=== PATIENT | female | born 1945 | race Caucasian/White ===

== ENCOUNTER 2016-10-13 13:46 | Emergency (ER) | payer MEDICARE ==
[2016-10-13 14:16] VITALS: BP 173/90; PULSE 87; RESP 16; TEMP 97.7
[2016-10-13] MEDS ORDERED: LORazepam 2 MG/ML SYRINGE IV STA (15:03)
--- NOTE | 2016-10-13 15:42 | XR ---
EXAMINATION TYPE: XR chest 2V DATE OF EXAM: 10/13/2016 3:36 PM COMPARISON: NONE HISTORY: Chest pain and heaviness. TECHNIQUE: Frontal and lateral views of the chest are obtained. FINDINGS: There is no focal air space opacity, pleural effusion, or pneumothorax seen. The cardiac silhouette size is within normal limits. The osseous structures are intact. IMPRESSION: No acute process.
[2016-10-13 15:48] LABS: Basophils % (A) 1 %; CH 31.3; CHCM 34.8; Eosinophils # (A) 0.5 k/uL (0-0.7); Eosinophils % (A) 11 %; HCT 36.1 % (34.0-46.0); HDW 2.83; HGB 12.3 gm/dL (11.4-16.0); Luc # (Auto) 0.14; Luc % (Auto) 3; Lymphocytes # (A) 1.2 k/uL (1.0-4.8); Lymphocytes % (A) 27 %; MCH 30.8 pg (25.0-35.0); MCHC 33.9 g/dL (31.0-37.0); MCV 90.7 fL (80.0-100.0); Mean Platelet Volume 7.2; Monocytes # (A) 0.4 k/uL (0-1.0); Monocytes % (A) 8 %; Neutrophils # (A) 2.3 k/uL (1.3-7.7); Neutrophils % (A) 50 %; RBC 3.98 m/uL (3.80-5.40); RDW 13.8 % (11.5-15.5); WBC 4.6 k/uL (3.8-10.6); WBC (Perox) 4.81
[2016-10-13 15:49] LABS: INR 1.1 (<1.1); Partial Thromboplastin Time 23.7 sec (22.0-30.0); Prothrombin Time 10.8 sec (9.0-12.0)
[2016-10-13 15:53] LABS: Anion Gap 11 mmol/L; Carbon Dioxide 24 mmol/L (22-30); Chloride 106 mmol/L (98-107); Glucose 79 mg/dL (74-99); Potassium 3.6 mmol/L (3.5-5.1); Sodium 141 mmol/L (137-145)
--- NOTE | 2016-10-13 15:53 | ED ---
General Adult HPI - General Chief complaint: Chest Pain Stated complaint: Chest Pain Time Seen by Provider: 10/13/16 14:28 Source: patient, RN notes reviewed, old records reviewed Mode of arrival: ambulatory Limitations: no limitations - History of Present Illness Initial comments: This is a 71-year-old female for evaluation. This patient presents here today for evaluation of multiple complaints of substernal chest pain. Patient has no specific chest pain at this time is is does not feel right, felt some pressure on the anterior part of chest may be some increased to job. No shortness of breath. This happened while she was getting a drink earlier today of pop with her friend. Patient's admits to a lot of increased stress with life situations lately, extensive travel history and conditions with family stress. Patient admits to increased stress but no homicidal or suicidal thoughts, no drugs or alcohol abuse. She is not currently with any chest - Related Data Home Medications Medication Instructions Recorded Confirmed Atorvastatin Calcium [Lipitor] 40 mg PO DAILY 04/28/16 10/13/16 Calcium Carbonate [Calcium] 600 mg PO DAILY 04/28/16 10/13/16 Cholecalciferol [Vitamin D3] 1,000 unit PO DAILY 04/28/16 10/13/16 Esomeprazole Magnesium [NexIUM] 40 mg PO DAILY PRN 04/28/16 10/13/16 L.acidoph,Paracasei, B.lactis 1 cap PO DAILY 04/28/16 10/13/16 [Probiotic] Levothyroxine Sodium [Synthroid] 50 mcg PO DAILY 04/28/16 10/13/16 Levocetirizine Dihydrochloride 5 mg PO DAILY 10/13/16 10/13/16 [Xyzal] Levofloxacin [Levaquin] 500 mg PO DAILY 10/13/16 10/13/16 Turmeric Root Extract [Turmeric] 500 mg PO DAILY 10/13/16 10/13/16 Vitamin E (Dl,Tocopheryl Acet) 400 unit PO DAILY 10/13/16 10/13/16 [Vitamin E] valACYclovir [Valtrex] 500 mg PO DAILY 10/13/16 10/13/16 Allergies Allergy/AdvReac Type Severity Reaction Status Date / Time epinephrine Allergy Unknown Verified 10/13/16 15:15 Penicillins Allergy Rash/Hives Verified 10/13/16 15:15 STEROIDS Allergy Unknown Uncoded 10/13/16 14:16 Review of Systems ROS Statement: Those systems with pertinent positive or pertinent negative responses have been documented in the HPI. ROS Other: All systems not noted in ROS Statement are negative. Past Medical History Past Medical History: Hyperlipidemia, Thyroid Disorder History of Any Multi-Drug Resistant Organisms: None Reported Past Surgical History: Adenoidectomy, Orthopedic Surgery, Tonsillectomy Past Psychological History: Anxiety Smoking Status: Never smoker Past Alcohol Use History: None Reported Past Drug Use History: None Reported General Exam Limitations: no limitations General appearance: alert, in no apparent distress, anxious Head exam: Present: atraumatic, normocephalic, normal inspection Eye exam: Present: normal appearance, PERRL, EOMI. Absent: scleral icterus, conjunctival injection, periorbital swelling ENT exam: Present: normal exam, mucous membranes moist Neck exam: Present: normal inspection. Absent: tenderness, meningismus, lymphadenopathy Respiratory exam: Present: normal lung sounds bilaterally. Absent: respiratory distress, wheezes, rales, rhonchi, stridor Cardiovascular Exam: Present: regular rate, normal rhythm, normal heart sounds. Absent: systolic murmur, diastolic murmur, rubs, gallop, clicks GI/Abdominal exam: Present: soft, normal bowel sounds. Absent: distended, tenderness, guarding, rebound, rigid Extremities exam: Present: normal inspection, full ROM, normal capillary refill. Absent: tenderness, pedal edema, joint swelling, calf tenderness Back exam: Present: normal inspection Neurological exam: Present: alert, oriented X3, CN II-XII intact Psychiatric exam: Present: normal affect, normal mood Skin exam: Present: warm, dry, intact, normal color. Absent: rash Course Vital Signs 10/13/16 14:12 Temperature 97.7 F Pulse Rate 87 Respiratory 16 Rate Blood Pressure 173/90 O2 Sat by Pulse 99 Oximetry - Reevaluation(s) Reevaluation #1: 10/13/16 15:52 Spoke with patient greater than 15 minutes, counseling provided, she remains not homicidal or suicidal, no chest pain 10/13/16 16:53 Patient is without any chest pain or shortness of breath, denies homicidal or suicidal EKG Findings - EKG Comments: EKG Findings:: EKG shows normal sinus rhythm rate 93, VT 190, QRS 94, QTC 484 Medical Decision Making - Medical Decision Making 71 female here for evaluation of stress increased life stressors, not homicidal or suicidal, denies any chest pain. No shortness of breath. EKG H Schaeffer negative. Patient can be discharged home - Lab Data Result diagrams: 10/13/16 15:23 10/13/16 15:23 Lab Results 10/13/16 10/13/16 10/13/16 Range/Units 15:23 15:23 15:23 WBC 4.6 (3.8-10.6) k/uL RBC 3.98 (3.80-5.40) m/uL Hgb 12.3 (11.4-16.0) gm/dL Hct 36.1 (34.0-46.0) % MCV 90.7 (80.0-100.0) fL MCH 30.8 (25.0-35.0) pg MCHC 33.9 (31.0-37.0) g/dL RDW 13.8 (11.5-15.5) % Plt Count 282 (150-450) k/uL Neutrophils % 50 % Lymphocytes % 27 % Monocytes % 8 % Eosinophils % 11 % Basophils % 1 % Neutrophils # 2.3 (1.3-7.7) k/uL Lymphocytes # 1.2 (1.0-4.8) k/uL Monocytes # 0.4 (0-1.0) k/uL Eosinophils # 0.5 (0-0.7) k/uL Basophils # 0.0 (0-0.2) k/uL PT (9.0-12.0) sec INR (<1.1) APTT (22.0-30.0) sec Sodium 141 (137-145) mmol/L Potassium 3.6 (3.5-5.1) mmol/L Chloride 106 (98-107) mmol/L Carbon Dioxide 24 (22-30) mmol/L Anion Gap 11 mmol/L BUN 11 (7-17) mg/dL Creatinine 0.80 (0.52-1.04) mg/dL Est GFR (MDRD) Af Amer >60 (>60 ml/min/1.73 sqM) Est GFR (MDRD) Non-Af >60 (>60 ml/min/1.73 sqM) Glucose 79 (74-99) mg/dL Calcium 10.2 (8.4-10.2) mg/dL Magnesium 2.0 (1.6-2.3) mg/dL Total Bilirubin 0.5 (0.2-1.3) mg/dL AST 22 (14-36) U/L ALT 35 (9-52) U/L Alkaline Phosphatase 80 (38-126) U/L Total Creatine Kinase 78 (30-135) U/L CK-MB (CK-2) 0.6 (0.0-2.4) ng/mL CK-MB (CK-2) Rel Index 0.8 Troponin I <0.012 (0.000-0.034) ng/mL Total Protein 7.5 (6.3-8.2) g/dL Albumin 4.3 (3.5-5.0) g/dL Lipase 148 (23-300) U/L 10/13/16 Range/Units 15:23 WBC (3.8-10.6) k/uL RBC (3.80-5.40) m/uL Hgb (11.4-16.0) gm/dL Hct (34.0-46.0) % MCV (80.0-100.0) fL MCH (25.0-35.0) pg MCHC (31.0-37.0) g/dL RDW (11.5-15.5) % Plt Count (150-450) k/uL Neutrophils % % Lymphocytes % % Monocytes % % Eosinophils % % Basophils % % Neutrophils # (1.3-7.7) k/uL Lymphocytes # (1.0-4.8) k/uL Monocytes # (0-1.0) k/uL Eosinophils # (0-0.7) k/uL Basophils # (0-0.2) k/uL PT 10.8 (9.0-12.0) sec INR 1.1 (<1.1) APTT 23.7 (22.0-30.0) sec Sodium (137-145) mmol/L Potassium (3.5-5.1) mmol/L Chloride (98-107) mmol/L Carbon Dioxide (22-30) mmol/L Anion Gap mmol/L BUN (7-17) mg/dL Creatinine (0.52-1.04) mg/dL Est GFR (MDRD) Af Amer (>60 ml/min/1.73 sqM) Est GFR (MDRD) Non-Af (>60 ml/min/1.73 sqM) Glucose (74-99) mg/dL Calcium (8.4-10.2) mg/dL Magnesium (1.6-2.3) mg/dL Total Bilirubin (0.2-1.3) mg/dL AST (14-36) U/L ALT (9-52) U/L Alkaline Phosphatase (38-126) U/L Total Creatine Kinase (30-135) U/L CK-MB (CK-2) (0.0-2.4) ng/mL CK-MB (CK-2) Rel Index Troponin I (0.000-0.034) ng/mL Total Protein (6.3-8.2) g/dL Albumin (3.5-5.0) g/dL Lipase (23-300) U/L - Radiology Data Radiology results: report reviewed (Chest x-ray shows no acute disease), image reviewed Disposition Clinical Impression: Grief reaction, Chest pain Disposition: HOME SELF-CARE Condition: Good Instructions: Grief and Loss (ED) Referrals: Nonstaff,Physician [Primary Care Provider] - 1-2 days
[2016-10-13 15:54] LABS: ALT 35 U/L (9-52); AST 22 U/L (14-36); Alkaline Phosphatase 80 U/L (38-126); Calcium 10.2 mg/dL (8.4-10.2); Non-African American GFR(MDRD) >60 (>60 ml/min/1.73 sqM); Total Bilirubin 0.5 mg/dL (0.2-1.3); Total Protein 7.5 g/dL (6.3-8.2)
[2016-10-13 15:55] LABS: Blood Urea Nitrogen 11 mg/dL (7-17)
[2016-10-13 16:01] LABS: Creatine Kinase 78 U/L (30-135)
[2016-10-13 16:15] LABS: Creatine Kinase MB 0.6 ng/mL (0.0-2.4); Troponin I <0.012 ng/mL (0.000-0.034)
== END 2016-10-13 17:20 | disposition home or self-care (01) ==
LOC: EC 13:46
DX: R07.89 Other chest pain (principal); F43.20 Adjustment disorder, unspecified; F43.9 Reaction to severe stress, unspecified; E78.5 Hyperlipidemia, unspecified; E07.9 Disorder of thyroid, unspecified; F41.9 Anxiety disorder, unspecified; Z79.899 Other long term (current) drug therapy; Z88.0 Allergy status to penicillin; Z88.8 Allergy status to other drugs, medicaments and biological substances
CPT/HCPCS: 36415; 71020; 80053; 82550; 82553; 83690; 83735; 84484; 85025; 85610; 85730; 93005; 96374; 99285

== ENCOUNTER 2017-04-25 12:02 | Emergency (ER) | payer MEDICARE ==
[2017-04-25 12:10] VITALS: BP 158/79; PULSE 71; RESP 16; TEMP 97
--- NOTE | 2017-04-25 12:54 | XR ---
EXAMINATION TYPE: XR wrist complete LT DATE OF EXAM: 04/25/2017 COMPARISON: NONE HISTORY: 71-year-old female radial sided pain after fall TECHNIQUE: 4 views FINDINGS: Radiocarpal and distal radial ulnar joint as well as the midcarpal compartment appear intact. There a ppears to be some soft tissue swelling circumferentially about the wrist. No acute fracture, subluxat ion, or dislocation seen. IMPRESSION: Circumferential soft tissue swelling at the wrist. No acute osseous abnormality seen.
--- NOTE | 2017-04-25 12:55 | ED ---
General Adult HPI - General Chief complaint: Extremity Injury, Upper Stated complaint: Left wrist pain/fell Time Seen by Provider: 04/25/17 12:11 Source: patient Mode of arrival: ambulatory Limitations: no limitations - History of Present Illness Initial comments: 71-year-old female patient presents to emergency department today for evaluation of left wrist injury. Patient states that she was coming down wooden stairs this morning, states they were slippery, states she slipped and fell down about 4 steps. Patient states that she did not hit her head or lose consciousness. She denies any head, neck, or back pain. She denies any other injuries other than the wrist. Patient states that she is having some mild jaw pain from the jarring. However denies any difficulty opening her mouth, chewing , or speaking. She denies any loose or broken teeth. She denies any dizziness , weakness, chest pain, shortness of breath, abdominal pain, nausea, vomiting, difficulties with urination or bowel movements. GCS is 15. - Related Data Home Medications Medication Instructions Recorded Confirmed Atorvastatin Calcium [Lipitor] 40 mg PO DAILY 04/28/16 04/25/17 Calcium Carbonate [Calcium] 600 mg PO DAILY 04/28/16 04/25/17 Cholecalciferol [Vitamin D3] 1,000 unit PO DAILY 04/28/16 04/25/17 Esomeprazole Magnesium [NexIUM] 40 mg PO DAILY PRN 04/28/16 04/25/17 L.acidoph,Paracasei, B.lactis 1 cap PO DAILY 04/28/16 04/25/17 [Probiotic] Levothyroxine Sodium [Synthroid] 50 mcg PO DAILY 04/28/16 04/25/17 Levocetirizine Dihydrochloride 5 mg PO DAILY 10/13/16 04/25/17 [Xyzal] Levofloxacin [Levaquin] 500 mg PO DAILY 10/13/16 04/25/17 Turmeric Root Extract [Turmeric] 500 mg PO DAILY 10/13/16 04/25/17 Vitamin E (Dl,Tocopheryl Acet) 400 unit PO DAILY 10/13/16 04/25/17 [Vitamin E] valACYclovir [Valtrex] 500 mg PO DAILY 10/13/16 04/25/17 Allergies Allergy/AdvReac Type Severity Reaction Status Date / Time epinephrine Allergy Unknown Verified 04/25/17 12:10 Penicillins Allergy Rash/Hives Verified 04/25/17 12:10 STEROIDS Allergy Unknown Uncoded 04/25/17 12:10 Review of Systems ROS Statement: Those systems with pertinent positive or pertinent negative responses have been documented in the HPI. ROS Other: All systems not noted in ROS Statement are negative. Past Medical History Past Medical History: Hyperlipidemia, Thyroid Disorder History of Any Multi-Drug Resistant Organisms: None Reported Past Surgical History: Adenoidectomy, Orthopedic Surgery, Tonsillectomy Past Psychological History: Anxiety Smoking Status: Never smoker Past Alcohol Use History: None Reported Past Drug Use History: None Reported General Exam Limitations: no limitations General appearance: alert, in no apparent distress Head exam: Present: atraumatic, normocephalic, normal inspection Eye exam: Present: normal appearance, PERRL, EOMI. Absent: scleral icterus, conjunctival injection, periorbital swelling, periorbital tenderness ENT exam: Present: normal exam, normal oropharynx, mucous membranes moist, TM's normal bilaterally, other (Patient able to open mouth without difficulty, able to open jaw with resistance, able to bite down without pain. Dentition inspected, no loose or broken teeth noted.) Neck exam: Present: normal inspection, full ROM, other (No tenderness, step-off , or deformity noted to her midline palpation. Full range of motion without pain or limitation.). Absent: tenderness, meningismus, lymphadenopathy Respiratory exam: Present: normal lung sounds bilaterally. Absent: respiratory distress, wheezes, rales, rhonchi, stridor Cardiovascular Exam: Present: regular rate, normal rhythm, normal heart sounds. Absent: systolic murmur, diastolic murmur, rubs, gallop, clicks GI/Abdominal exam: Present: soft, normal bowel sounds. Absent: distended, tenderness, guarding, rebound, rigid Extremities exam: Present: full ROM (Patient is able to flex wrist but with pain , able to extend wrist but with pain.), tenderness (Tenderness over the ulnar aspect of the left wrist.), normal capillary refill, other. Absent: normal inspection (Mild swelling to the ulnar aspect of the left wrist), pedal edema, joint swelling, calf tenderness Back exam: Present: normal inspection, full ROM (Full range of motion without pain or limitation.), other (No tenderness, step-off, or deformity noted to her midline palpation of the vertebra.). Absent: tenderness, CVA tenderness (R), CVA tenderness (L), vertebral tenderness, rash noted Neurological exam: Present: alert, oriented X3, CN II-XII intact, other (GCS 15. ) Psychiatric exam: Present: normal affect, normal mood Skin exam: Present: warm, dry, intact, normal color. Absent: rash Course Vital Signs 04/25/17 12:05 Temperature 97.0 F L Pulse Rate 71 Respiratory 16 Rate Blood Pressure 158/79 O2 Sat by Pulse 100 Oximetry Medical Decision Making - Medical Decision Making 71-year-old female patient presented to the emergency department today for evaluation of left wrist pain after fall. Physical exam did reveal some soft tissue swelling surrounding the left wrist, as well as tenderness over the ulnar aspect of the left wrist. Patient did have an x-ray 4 views of the left wrist which showed no acute fracture or dislocation and reaffirmed that there was soft tissue swelling. Patient will be discharged home with an Chu wrap in place for comfort and support. Patient instructed take Tylenol or Motrin for pain control. Patient was also advised to obtain a repeat x-ray in 7-10 days if her symptoms persist. Patient instructed to follow-up with her primary care physician for recheck in 1-2 days and to return immediately for any new, worsening, or concerning symptoms. Patient verbalized understanding and agreed with this plan. - Radiology Data Radiology results: report reviewed, image reviewed 4 views of the left wrist were obtained and showed radiocarpal and distal radial ulnar joint as well as the midcarpal compartments appear intact. There appears to be some soft tissue swelling circumferentially about the wrist. No acute fracture, subluxation, or dislocation seen. Impression by Dr. Patel shows circumferential soft tissue swelling at the wrist. No acute osseous abnormality seen. Disposition Clinical Impression: Left wrist sprain Disposition: HOME SELF-CARE Instructions: Wrist Sprain (ED) Additional Instructions: Rest wrist, keep Chu wrap on for comfort. Apply ice 20 minutes at a time at least 4 times daily. Keep wrist elevated. Follow up for repeat x-ray in 7-10 days if symptoms persist. Follow-up with primary care physician for recheck in 1-2 days. Return immediately for any new, worsening, or concerning symptoms. Referrals: Nonstaff,Physician [REFERRING] - 1-2 days Time of Disposition: 12:57
== END 2017-04-25 13:13 | disposition home or self-care (01) ==
LOC: EC 12:02
DX: S63.502A Unspecified sprain of left wrist, initial encounter (principal); E78.5 Hyperlipidemia, unspecified; E07.9 Disorder of thyroid, unspecified; Z88.0 Allergy status to penicillin; Z88.8 Allergy status to other drugs, medicaments and biological substances; Z79.899 Other long term (current) drug therapy; W10.8XXA Fall (on) (from) other stairs and steps, initial encounter; Y92.009 Unspecified place in unspecified non-institutional (private) residence as the place of occurrence of the external cause
CPT/HCPCS: 99283

== ENCOUNTER → 2018-02-27 | Outpatient (CLI) | payer MEDICARE ==
--- NOTE | 2018-02-28 15:58 | BD ---
EXAMINATION TYPE: Axial Bone Density DATE OF EXAM: 02/27/2018 COMPARISON: NONE CLINICAL HISTORY: OSTEOPENIA Height: 5'2 1/2 Weight: 155 FRAX RISK QUESTIONS: Secondary Osteoporosis: RISK FACTORS HISTORY OF: Postmenopausal woman: MEDICATIONS: Thyroid Medications: Which medication: Synthroid How Lon years Additional Medications: cholesterol, zantac ,allergy seasonal, Additional History: EXAM MEASUREMENTS: Bone mineral densitometry was performed using the [employer]. Bone mineral density as measured about the Lumbar spine is: ----- L1-L4(G/cm2): 1.033 T Score Values are as follows: ----- L2: -1.6 ----- L3: -1.1 ----- L4: -0.5 ----- L1-L4:-1.2 Bone mineral density about the R hip (g/cm2): 0.896 Bone mineral density about the L hip (g/cm2): 0.845 T Score values are as follows: -----R Neck: -1.1 -----L Neck: -1.4 -----R Total: -0.7 -----L Total: -0.9 IMPRESSION: Osteopenia (T Score between -2.5 and -1). There is slightly increased risk of fracture and the patient may be considered for treatment. Re-Screen 2-5 years. NOTE: T-SCORE=SD OF THE YOUNG ADULT MEAN.
== END | disposition home or self-care (01) ==
LOC: RADBDWWP 14:46
PROVIDERS: ATTEND Obstetrics & Gynecology
DX: M85.80 Other specified disorders of bone density and structure, unspecified site (principal); M89.9 Disorder of bone, unspecified
CPT/HCPCS: 77080

== ENCOUNTER 2019-05-10 22:54 | Emergency (ER) | payer MEDICARE ==
[2019-05-10 23:22] VITALS: RESP 18
[2019-05-10] MEDS ORDERED: SODIUM CHLORIDE 0.9% 1,000 ML IV STA (23:24)
[2019-05-11 00:22] LABS: Basophils % (A) 1 %; Eosinophils # (A) 0.5 k/uL (0-0.7); Eosinophils % (A) 7 %; HCT 34.3 % (34.0-46.0); HGB 11.7 gm/dL (11.4-16.0); Lymphocytes # (A) 1.8 k/uL (1.0-4.8); Lymphocytes % (A) 26 %; MCH 30.3 pg (25.0-35.0); MCHC 34.2 g/dL (31.0-37.0); MCV 88.7 fL (80.0-100.0); Mean Platelet Volume 6.7; Monocytes # (A) 0.6 k/uL (0-1.0); Monocytes % (A) 9 %; Neutrophils # (A) 3.9 k/uL (1.3-7.7); Neutrophils % (A) 55 %; Platelet Count 317 k/uL (150-450); RBC 3.86 m/uL (3.80-5.40); RDW 15.2 % (11.5-15.5); WBC 7.1 k/uL (3.8-10.6)
[2019-05-11 00:30] LABS: Albumin 4.2 g/dL (3.5-5.0); Calcium 9.5 mg/dL (8.4-10.2); Potassium 3.9 mmol/L (3.5-5.1); Total Bilirubin 0.2 mg/dL (0.2-1.3); Total Protein 7.3 g/dL (6.3-8.2)
--- NOTE | 2019-05-11 00:46 | ED ---
General Adult HPI - General Chief complaint: Abdominal Pain Stated complaint: Abd Pain RLQ Pain Time Seen by Provider: 05/10/19 23:24 Source: patient, RN notes reviewed, old records reviewed Mode of arrival: ambulatory Limitations: no limitations - History of Present Illness Initial comments: 73-year-old female patient with long history of abdominal pain, constipation presents ED chief complaint of 3 weeks of generalized abdominal pain, right lower quadrant abdominal pain. Patient was that this is worse than her baseline discomfort she is experiencing. Patient reports that she had a small hard bowel movement yesterday. Has been passing flatus today. Patient reports that she has experienced mild nausea without emesis over this time. Denies any other complaints at this time. Systemic: Pt denies fatigue, fever/chills, rash. Pt denies weakness, night sweats, weight loss. Neuro: Pt denies headache, visual disturbances, syncope or pre-syncope. HEENT: Pt denies ocular discharge or irritation, otalgia, rhinorrhea, pharyngitis or notable lymphadenopathy. Cardiopulmonary: Pt denies chest pain, SOB, heart palpitations, dyspnea on exertion. Abdominal/GI: Pt denies abdominal pain, n/v/d. : Pt denies dysuria, burning w/ urination, frequency/urgency. Denies new onset urinary or bowel incontinence. MSK: Pt denies myalgia, loss of strength or function in extremities. Neuro: Pt denies new onset weakness, paresthesias. - Related Data Home Medications Medication Instructions Recorded Confirmed Atorvastatin Calcium [Lipitor] 40 mg PO DAILY 04/28/16 04/25/17 Calcium Carbonate [Calcium] 600 mg PO DAILY 04/28/16 04/25/17 Cholecalciferol [Vitamin D3] 1,000 unit PO DAILY 04/28/16 04/25/17 Esomeprazole Magnesium [NexIUM] 40 mg PO DAILY PRN 04/28/16 04/25/17 L.acidoph,Paracasei, B.lactis 1 cap PO DAILY 04/28/16 04/25/17 [Probiotic] Levothyroxine Sodium [Synthroid] 50 mcg PO DAILY 04/28/16 04/25/17 Levocetirizine Dihydrochloride 5 mg PO DAILY 10/13/16 04/25/17 [Xyzal] Levofloxacin [Levaquin] 500 mg PO DAILY 10/13/16 04/25/17 Turmeric Root Extract [Turmeric] 500 mg PO DAILY 10/13/16 04/25/17 Vitamin E (Dl,Tocopheryl Acet) 400 unit PO DAILY 10/13/16 04/25/17 [Vitamin E] valACYclovir [Valtrex] 500 mg PO DAILY 10/13/16 04/25/17 Previous Rx's Medication Instructions Recorded Moxifloxacin HCl [Avelox] 400 mg PO Q24HR 9 Days #9 tablet 05/11/19 Allergies Allergy/AdvReac Type Severity Reaction Status Date / Time epinephrine Allergy Unknown Verified 05/10/19 23:22 Penicillins Allergy Rash/Hives Verified 05/10/19 23:22 STEROIDS Allergy Unknown Uncoded 05/10/19 23:22 Review of Systems ROS Statement: Those systems with pertinent positive or pertinent negative responses have been documented in the HPI. ROS Other: All systems not noted in ROS Statement are negative. Past Medical History Past Medical History: Hyperlipidemia, Thyroid Disorder History of Any Multi-Drug Resistant Organisms: None Reported Past Surgical History: Adenoidectomy, Orthopedic Surgery, Tonsillectomy Past Psychological History: Anxiety Smoking Status: Never smoker Past Alcohol Use History: None Reported Past Drug Use History: None Reported General Exam - General Exam Comments Initial Comments: Constitutional: NAD, AOX3, Pt has pleasant affect. HEENT: NC/AT, trachea midline, neck supple, no lymphadenopathy. Posterior pharynx non erythematous, without exudates. External ears appear normal, without discharge. Mucous membranes moist. Eyes PERRLA, EOM intact. There is no scleral icterus. No pallor noted. Cardiopulmonary: RRR, no murmurs, rubs or gallops, no JVD noted. Lungs CTAB in anterior and posterior garcia. No peripheral edema. Abdominal exam: Abdomen soft and non-distended. Abdomen mildly tender to palpation in right lower quadrant. No other areas of abdominal tenderness. Bowel sounds active in LLQ. No hepatosplenomegaly. No ecchymosis Neuro: CN II-XII grossly intact. No nuchal rigidity. No raccon eyes, no rogers sign, no hemotympanum. No cervical spinal tenderness. MSK: No posterior calf tenderness bilaterally, homans sign negative bilaterally. Posterior tibialis and radial pulse +2 bilaterally. Sensation intact in upper and lower extremities. Full active ROM in upper and lower extremities, 5/5 stregnth. Limitations: no limitations Course Vital Signs 05/10/19 05/11/19 23:19 01:20 Temperature 98 F 98.5 F Pulse Rate 90 81 Respiratory 18 18 Rate Blood Pressure 151/101 137/108 O2 Sat by Pulse 99 95 Oximetry Medical Decision Making - Medical Decision Making 73-year-old female patient with long history of abdominal pain, constipation presents ED chief complaint of 3 weeks of generalized abdominal pain, right lower quadrant abdominal pain. Patient was that this is worse than her baseline discomfort she is experiencing. Patient reports that she had a small hard bowel movement yesterday. Has been passing flatus today. Patient reports that she has experienced mild nausea without emesis over this time. Denies any other complaints at this time. Patient vital signs stable, afebrile. Physical exam displayed abdomen mildly tender to palpation in right lower quadrant region. Laboratory investigations noncompressive. Patient initially declined a CT, KUB was ordered. This did not display acute process. She was not amenable to CT, request without contrast due to prior ALLERGY history. This displayed acute diverticulitis of the distal descending colon, no bowel obstruction. Due to patient antibiotic ALLERGY patient will be discharged with moxifloxacin. Ad ministered one dose of Levaquin in ED. Patient will be discharged with return precautions. Case discussed with Dr. Encarnacion. - Lab Data Result diagrams: 05/11/19 00:03 05/11/19 00:03 Lab Results 05/11/19 05/11/19 05/11/19 Range/Units 00:03 00:03 00:03 WBC 7.1 (3.8-10.6) k/uL RBC 3.86 (3.80-5.40) m/uL Hgb 11.7 (11.4-16.0) gm/dL Hct 34.3 (34.0-46.0) % MCV 88.7 (80.0-100.0) fL MCH 30.3 (25.0-35.0) pg MCHC 34.2 (31.0-37.0) g/dL RDW 15.2 (11.5-15.5) % Plt Count 317 (150-450) k/uL Neutrophils % 55 % Lymphocytes % 26 % Monocytes % 9 % Eosinophils % 7 % Basophils % 1 % Neutrophils # 3.9 (1.3-7.7) k/uL Lymphocytes # 1.8 (1.0-4.8) k/uL Monocytes # 0.6 (0-1.0) k/uL Eosinophils # 0.5 (0-0.7) k/uL Basophils # 0.0 (0-0.2) k/uL Sodium 138 (137-145) mmol/L Potassium 3.9 (3.5-5.1) mmol/L Chloride 104 (98-107) mmol/L Carbon Dioxide 25 (22-30) mmol/L Anion Gap 9 mmol/L BUN 12 (7-17) mg/dL Creatinine 0.85 (0.52-1.04) mg/dL Est GFR (CKD-EPI)AfAm 80 (>60 ml/min/1.73 sqM) Est GFR (CKD-EPI)NonAf 69 (>60 ml/min/1.73 sqM) Glucose 92 (74-99) mg/dL Plasma Lactic Acid Turner 1.2 (0.7-2.0) mmol/L Calcium 9.5 (8.4-10.2) mg/dL Total Bilirubin 0.2 (0.2-1.3) mg/dL AST 21 (14-36) U/L ALT 21 (9-52) U/L Alkaline Phosphatase 90 (38-126) U/L Total Protein 7.3 (6.3-8.2) g/dL Albumin 4.2 (3.5-5.0) g/dL Lipase 269 (23-300) U/L Urine Color Urine Appearance (Clear) Urine pH (5.0-8.0) Ur Specific [place] (1.001-1.035) Urine Protein (Negative) Urine Glucose (UA) (Negative) Urine Ketones (Negative) Urine Blood (Negative) Urine Nitrite (Negative) Urine Bilirubin (Negative) Urine Urobilinogen (<2.0) mg/dL Ur Leukocyte Esterase (Negative) 05/11/19 Range/Units 00:45 WBC (3.8-10.6) k/uL RBC (3.80-5.40) m/uL Hgb (11.4-16.0) gm/dL Hct (34.0-46.0) % MCV (80.0-100.0) fL MCH (25.0-35.0) pg MCHC (31.0-37.0) g/dL RDW (11.5-15.5) % Plt Count (150-450) k/uL Neutrophils % % Lymphocytes % % Monocytes % % Eosinophils % % Basophils % % Neutrophils # (1.3-7.7) k/uL Lymphocytes # (1.0-4.8) k/uL Monocytes # (0-1.0) k/uL Eosinophils # (0-0.7) k/uL Basophils # (0-0.2) k/uL Sodium (137-145) mmol/L Potassium (3.5-5.1) mmol/L Chloride (98-107) mmol/L Carbon Dioxide (22-30) mmol/L Anion Gap mmol/L BUN (7-17) mg/dL Creatinine (0.52-1.04) mg/dL Est GFR (CKD-EPI)AfAm (>60 ml/min/1.73 sqM) Est GFR (CKD-EPI)NonAf (>60 ml/min/1.73 sqM) Glucose (74-99) mg/dL Plasma Lactic Acid [place] (0.7-2.0) mmol/L Calcium (8.4-10.2) mg/dL Total Bilirubin (0.2-1.3) mg/dL AST (14-36) U/L ALT (9-52) U/L Alkaline Phosphatase (38-126) U/L Total Protein (6.3-8.2) g/dL Albumin (3.5-5.0) g/dL Lipase (23-300) U/L Urine Color Colorless Urine Appearance Clear (Clear) Urine pH 7.0 (5.0-8.0) Ur Specific [place] 1.003 (1.001-1.035) Urine Protein Negative (Negative) Urine Glucose (UA) Negative (Negative) Urine Ketones Negative (Negative) Urine Blood Negative (Negative) Urine Nitrite Negative (Negative) Urine Bilirubin Negative (Negative) Urine Urobilinogen <2.0 (<2.0) mg/dL Ur Leukocyte Esterase Negative (Negative) Disposition Clinical Impression: Acute diverticulitis Disposition: HOME SELF-CARE Condition: Stable Instructions (If sedation given, give patient instructions): Diverticulitis (ED) Additional Instructions: Patient to adhere to previously discussed treatment plan and will take medication(s) as directed. Patient to follow up with PCP in 1-2 days. Patient to return to ED if symptoms do not improve. Take medication as directed. Follow up with primary care provider and GI c onsult tomorrow. Return to ER if condition worsens. Prescriptions: Moxifloxacin HCl [Avelox] 400 mg PO Q24HR 9 Days #9 tablet Is patient prescribed a controlled substance at d/c from ED?: No Referrals: Pedro Maldonado MD [Primary Care Provider] - 1-2 days Connie Zapata MD [STAFF PHYSICIAN] - 1-2 days
[2019-05-11 00:54] LABS: Appearance,Urine Clear (Clear); Bilirubin,Urine Negative (Negative); Blood,Urine Negative (Negative); Color,Urine Colorless; Glucose,Urine (UA) Negative (Negative); Ketones,Urine Negative (Negative); Leukocyte Esterase,Urine Negative (Negative); Nitrite,Urine Negative (Negative); Protein,Urine Negative (Negative); Urobilinogen,Urine <2.0 mg/dL (<2.0)
[2019-05-11 01:05] LABS: Specific Gravity,Urine 1.003 (1.001-1.035)
--- NOTE | 2019-05-11 01:06 | XR ---
EXAM: XR Abdomen, 2 Views CLINICAL HISTORY: Pain TECHNIQUE: Frontal view of the abdomen/pelvis with upright view of the abdomen. COMPARISON: No relevant prior studies available. FINDINGS: Intraperitoneal space: Nonobstructed bowel gas pattern. No pneumatosis or free air. Gastrointestinal tract: Unremarkable. No dilation. Bones/joints: Unremarkable. Vasculature: Phleboliths noted within the left hemipelvis. IMPRESSION: Nonobstructed bowel gas pattern. No pneumatosis or free air.
[2019-05-11] MEDS ORDERED: IBUPROFEN 600 MG TAB PO STA (01:40)
--- NOTE | 2019-05-11 02:17 | CT ---
EXAM: CT Abdomen and Pelvis Without Intravenous Contrast CLINICAL HISTORY: Pain TECHNIQUE: Axial computed tomography images of the abdomen and pelvis without intravenous contrast. CTDI is 0.085, 0.085, 8.5 mGy and DLP is 513.2 mGy- cm. This CT exam was performed using one or more of the following dose reduction techniques: automated exposure control, adjustment of the mA and/or kV according to patient size, and/or use of iterative reconstruction technique. COMPARISON: No relevant prior studies available. FINDINGS: Lung bases: Bibasilar atelectasis and/or scarring. Heart: Calcifications of the coronary arteries and aortic valve leaflets. ABDOMEN: Liver: Unremarkable. Gallbladder and bile ducts: Unremarkable. Pancreas: Unremarkable. Spleen: Unremarkable. Adrenals: Unremarkable. Kidneys and ureters: Unremarkable. Stomach and bowel: Acute diverticulitis of the distal descending colon. No bowel obstruction, free air, or abscess. PELVIS: Appendix: Appendix is not visualized. Bladder: Unremarkable. Reproductive: Unremarkable as visualized. ABDOMEN and PELVIS: Intraperitoneal space: See above. Bones/joints: No acute fracture. No dislocation. Soft tissues: Tiny fat-containing umbilical hernia. Vasculature: Unremarkable. No abdominal aortic aneurysm. Lymph nodes: Unremarkable. IMPRESSION: Acute diverticulitis of the distal descending colon. No bowel obstruction, free air, or abscess.
[2019-05-11] MEDS ORDERED: LEVOFLOXACIN 750 MG TAB PO STA (02:19)
[2019-05-11 02:52] VITALS: BP 149/90; PULSE 80; TEMP 98.3
== END 2019-05-11 02:52 | disposition home or self-care (01) ==
LOC: EC 22:54
DX: K57.92 Diverticulitis of intestine, part unspecified, without perforation or abscess without bleeding (principal); E78.5 Hyperlipidemia, unspecified; E07.9 Disorder of thyroid, unspecified; Z79.899 Other long term (current) drug therapy; Z79.890 Hormone replacement therapy; Z88.0 Allergy status to penicillin; Z88.8 Allergy status to other drugs, medicaments and biological substances
CPT/HCPCS: 36415; 74018; 74176; 80053; 81003; 83605; 83690; 85025; 96360; 99285

== ENCOUNTER 2020-03-04 20:27 | Emergency (ER) | payer MEDICARE ==
[2020-03-04] MEDS ORDERED: LIDOCAINE 1% INJ 10MG/ML (20 ML MDV) SQ STA (21:09)
[2020-03-04] MEDS ORDERED: DIPH,PERTUS(ACELL)TETVAC-LF 0.5 ML VIAL IM ONE (21:09)
--- NOTE | 2020-03-04 21:31 | ED ---
General Adult HPI - General Chief complaint: Wound/Laceration Stated complaint: L Ring Finger Lac Time Seen by Provider: 03/04/20 21:06 Source: patient, family, RN notes reviewed, old records reviewed Mode of arrival: ambulatory Limitations: no limitations - History of Present Illness Initial comments: 74-year-old female patient presents to ED for treatment by laceration to distal aspect of left ring finger. Patient reports that she was picking up her toe started putting away and she cut herself. Does not know date of last tetanus. Denies any other complaints. Systemic: Pt denies fatigue, fever/chills, rash. Pt denies weakness, night sweats, weight loss. Neuro: Pt denies headache, visual disturbances, syncope or pre-syncope. HEENT: Pt denies ocular discharge or irritation, otalgia, rhinorrhea, pharyngitis or notable lymphadenopathy. Cardiopulmonary: Pt denies chest pain, SOB, heart palpitations, dyspnea on exertion. Abdominal/GI: Pt denies abdominal pain, n/v/d. : Pt denies dysuria, burning w/ urination, frequency/urgency. Denies new onset urinary or bowel incontinence. MSK: Pt denies myalgia, loss of strength or function in extremities. Neuro: Pt denies new onset weakness, paresthesias. - Related Data Home Medications Medication Instructions Recorded Confirmed Atorvastatin Calcium [Lipitor] 40 mg PO DAILY 04/28/16 04/25/17 Calcium Carbonate [Calcium] 600 mg PO DAILY 04/28/16 04/25/17 Cholecalciferol [Vitamin D3] 1,000 unit PO DAILY 04/28/16 04/25/17 Esomeprazole Magnesium [NexIUM] 40 mg PO DAILY PRN 04/28/16 04/25/17 L.acidoph,Paracasei, B.lactis 1 cap PO DAILY 04/28/16 04/25/17 [Probiotic] Levothyroxine Sodium [Synthroid] 50 mcg PO DAILY 04/28/16 04/25/17 Levocetirizine Dihydrochloride 5 mg PO DAILY 10/13/16 04/25/17 [Xyzal] Levofloxacin [Levaquin] 500 mg PO DAILY 10/13/16 04/25/17 Turmeric Root Extract [Turmeric] 500 mg PO DAILY 10/13/16 04/25/17 Vitamin E (Dl,Tocopheryl Acet) 400 unit PO DAILY 10/13/16 04/25/17 [Vitamin E] valACYclovir [Valtrex] 500 mg PO DAILY 10/13/16 04/25/17 Previous Rx's Medication Instructions Recorded Moxifloxacin HCl [Avelox] 400 mg PO Q24HR 9 Days #9 tablet 05/11/19 Allergies Allergy/AdvReac Type Severity Reaction Status Date / Time epinephrine Allergy Unknown Verified 03/04/20 20:43 Penicillins Allergy Rash/Hives Verified 03/04/20 20:43 STEROIDS Allergy Unknown Uncoded 03/04/20 20:43 Review of Systems ROS Statement: Those systems with pertinent positive or pertinent negative responses have been documented in the HPI. ROS Other: All systems not noted in ROS Statement are negative. Past Medical History Past Medical History: Hyperlipidemia, Thyroid Disorder History of Any Multi-Drug Resistant Organisms: None Reported Past Surgical History: Adenoidectomy, Orthopedic Surgery, Tonsillectomy Past Psychological History: Anxiety Smoking Status: Never smoker Past Alcohol Use History: None Reported Past Drug Use History: None Reported General Exam - General Exam Comments Initial Comments: Constitutional: NAD, AOX3, Pt has pleasant affect. HEENT: NC/AT, trachea midline. External ears appear normal, without discharge. Mucous membranes moist. EOM intact. There is no scleral icterus. No pallor noted. Cardiopulmonary: RRR, no murmurs, rubs or gallops, no JVD noted. Lungs CTAB in anterior and posterior garcia. No peripheral edema. Neuro: CN II-XII grossly intact. No nuchal rigidity. No raccon eyes, no rogers sign, no hemotympanum. No cervical spinal tenderness. MSK: 1 cm laceration to distal pad of the fourth digit on left hand. Irrigated, approximated 2 simple interrupted sutures. Flexion range of motion of digit before and after suture placement. Neurovascularly intact before and after suture placement. Capillary refill less than 2 seconds. Limitations: no limitations Course Vital Signs 03/04/20 20:40 Temperature 98.1 F Pulse Rate 79 Respiratory 18 Rate Blood Pressure 162/114 O2 Sat by Pulse 99 Oximetry Procedures - Laceration Laceration #1 Consent Obtained: verbal consent Site: hand (4th digit L hand ) Size (cm): 1 Description: linear Depth: simple, single layer Anesthetic Used: lidocaine 1% Anesthesia Technique: local infiltration Amount (mls): 2 Pre-repair: wound explored, irrigated extensively, deep structures intact Type of Sutures: nylon Size of Sutures: 5-0 Number of Sutures: 2 Technique: simple, interrupted Patient Tolerated Procedure: well, no complications Medical Decision Making - Medical Decision Making 74-year-old female patient presents to ED for chief complaint of laceration. Patient has a 170 laceration on the pad of her fourth digit. Patient laceration was irrigated. Approximately 2 simple interrupted sutures. He was updated. Discharged with return precautions and outpatient primary care follow-up. Case discussed with Dr. Sue. Disposition Clinical Impression: Laceration Disposition: HOME SELF-CARE Condition: Stable Instructions (If sedation given, give patient instructions): Laceration (ED), Care For Your Stitches (ED) Additional Instructions: Please return for suture removal: Hand: 7-10 days Please monitor for signs and symptoms of infection including: redness, warmth, drainage, discharge. Please return to ED if these signs or symptoms occur, new signs or symptoms develop or if condition worsens in anyway. Follow-up with primary care provider tomorrow. Is patient prescribed a controlled substance at d/c from ED?: No Referrals: Pedro Maldonado MD [Primary Care Provider] - 1-2 days
[2020-03-04 22:00] VITALS: BP 178/97; PULSE 76; RESP 17; TEMP 98.6
== END 2020-03-04 21:59 | disposition home or self-care (01) ==
LOC: EC 20:27
DX: S61.215A Laceration without foreign body of left ring finger without damage to nail, initial encounter (principal); E78.5 Hyperlipidemia, unspecified; E07.9 Disorder of thyroid, unspecified; I10 Essential (primary) hypertension; F41.9 Anxiety disorder, unspecified; Z79.890 Hormone replacement therapy; Z79.899 Other long term (current) drug therapy; Z88.0 Allergy status to penicillin; Z88.8 Allergy status to other drugs, medicaments and biological substances; Z23 Encounter for immunization; W27.4XXA Contact with kitchen utensil, initial encounter
CPT/HCPCS: 90715; 99283; 90471; 12001; J2001

== ENCOUNTER 2021-08-04 20:20 | Emergency (ER) | payer MEDICARE ==
[2021-08-04 20:33] VITALS: BP 130/86; PULSE 88; RESP 19; TEMP 98.5
--- NOTE | 2021-08-04 21:21 | ED ---
General Adult HPI - General Chief complaint: ENT Stated complaint: Sore Throat Time Seen by Provider: 08/04/21 20:51 Source: patient, RN notes reviewed Mode of arrival: ambulatory Limitations: no limitations - History of Present Illness Initial comments: 75-year-old female with a past medical history of hyperlipidemia presents to the emergency room for sore throat. Patient states she has had a sore throat for about a week. She feels her sinuses are draining into her throat causing this issue. She does seems to be getting worse. Today patient had pain with swallowing food. States she tried to get into her doctor this week but was unable as he is on vacation and therefore wanted to be evaluated here. Patient denies fevers.Patient has no other complaints at this time including shortness of breath, chest pain, abdominal pain, nausea or vomiting, headache, or visual changes. - Related Data Home Medications Medication Instructions Recorded Confirmed Atorvastatin Calcium [Lipitor] 40 mg PO DAILY 04/28/16 04/25/17 Calcium Carbonate [Calcium] 600 mg PO DAILY 04/28/16 04/25/17 Cholecalciferol [Vitamin D3] 1,000 unit PO DAILY 04/28/16 04/25/17 Esomeprazole Magnesium [NexIUM] 40 mg PO DAILY PRN 04/28/16 04/25/17 L.acidoph,Paracasei, B.lactis 1 cap PO DAILY 04/28/16 04/25/17 [Probiotic] Levothyroxine Sodium [Synthroid] 50 mcg PO DAILY 04/28/16 04/25/17 Levocetirizine Dihydrochloride 5 mg PO DAILY 10/13/16 04/25/17 [Xyzal] Levofloxacin [Levaquin] 500 mg PO DAILY 10/13/16 04/25/17 Turmeric Root Extract [Turmeric] 500 mg PO DAILY 10/13/16 04/25/17 Vitamin E (Dl,Tocopheryl Acet) 400 unit PO DAILY 10/13/16 04/25/17 [Vitamin E] valACYclovir [Valtrex] 500 mg PO DAILY 10/13/16 04/25/17 Previous Rx's Medication Instructions Recorded Moxifloxacin HCl [Avelox] 400 mg PO Q24HR 9 Days #9 tablet 05/11/19 Doxycycline [Vibramycin] 100 mg PO BID 7 Days #14 capsule 11/25/21 Fluticasone Nasal [place] [Flonase 1 spray EA NOSTRIL DAILY 7 Days 08/04/21 Nasal [place]] #16 gm Allergies Allergy/AdvReac Type Severity Reaction Status Date / Time epinephrine Allergy Unknown Verified 08/04/21 20:33 Penicillins Allergy Rash/Hives Verified 08/04/21 20:33 STEROIDS Allergy Unknown Uncoded 08/04/21 20:33 Review of Systems ROS Statement: Those systems with pertinent positive or pertinent negative responses have been documented in the HPI. ROS Other: All systems not noted in ROS Statement are negative. Past Medical History Past Medical History: Hyperlipidemia, Thyroid Disorder History of Any Multi-Drug Resistant Organisms: None Reported Past Surgical History: Adenoidectomy, Orthopedic Surgery, Tonsillectomy Past Psychological History: Anxiety Smoking Status: Never smoker Past Alcohol Use History: None Reported Past Drug Use History: None Reported General Exam Limitations: no limitations General appearance: alert, in no apparent distress Head exam: Present: atraumatic Eye exam: Present: normal appearance, PERRL, EOMI. Absent: scleral icterus, conjunctival injection ENT exam: Present: normal exam, normal oropharynx (Uvula midline, no tonsillar exudates bilaterally), mucous membranes moist, TM's normal bilaterally, normal external ear exam Neck exam: Present: normal inspection, full ROM. Absent: tenderness Respiratory exam: Present: normal lung sounds bilaterally. Absent: respiratory distress, wheezes Cardiovascular Exam: Present: regular rate, normal rhythm, normal heart sounds GI/Abdominal exam: Present: soft, normal bowel sounds. Absent: distended, tenderness Neurological exam: Present: alert Course Vital Signs 08/04/21 20:30 Temperature 98.5 F Pulse Rate 88 Respiratory 19 Rate Blood Pressure 130/86 O2 Sat by Pulse 99 Oximetry Medical Decision Making - Medical Decision Making vitals are stable. Coronavirus and strep negative. However symptoms have been going on over week patient strongly wants antibiotics. She is ALLERGIC to penicillins and states azithromycin does not work for her. Given this is likely more related to sinusitis and postnasal drip we will start her on doxycycline. She also will be started on a nasal spray. She will follow up with her doctor. She will return here for any worsening symptoms. - Lab Data Lab Results 08/04/21 08/04/21 Range/Units 21:03 21:03 Coronavirus (PCR) Not Detected (Not Detectd) Group A Strep Rapid Negative (Negative) Disposition Clinical Impression: Post-nasal drip, Pharyngitis Disposition: HOME SELF-CARE Condition: Good Instructions (If sedation given, give patient instructions): Pharyngitis (ED) Additional Instructions: Take medications as directed. Follow-up with your doctor. Return to the emergency room for any worsening symptoms. Prescriptions: Fluticasone Nasal [place] [Flonase Nasal [place]] 1 spray EA NOSTRIL DAILY 7 Days #16 gm Doxycycline [Vibramycin] 100 mg PO BID 7 Days #14 capsule Is patient prescribed a controlled substance at d/c from ED?: No Referrals: Pedro Maldonado MD [Primary Care Provider] - 1-2 days Time of Disposition: 22:15
[2021-08-04] MEDS ORDERED: DOXYCYCLINE 100 MG CAP PO STA (22:12)
== END 2021-08-04 22:34 | disposition home or self-care (01) ==
LOC: EC 20:20
DX: J02.9 Acute pharyngitis, unspecified (principal); R09.82 Postnasal drip; E78.5 Hyperlipidemia, unspecified; F41.9 Anxiety disorder, unspecified; Z79.899 Other long term (current) drug therapy
CPT/HCPCS: 87081; 87430; 87635; 99283

== ENCOUNTER 2024-05-02 19:35 | Emergency (ER) | payer MEDICARE ==
[2024-05-02] MEDS ORDERED: ACETAMINOPHEN TAB 500 MG TAB ONE (20:38)
[2024-05-02] MEDS ORDERED: SODIUM CHLORIDE 0.9% 1,000 ML BAG ONE (20:39)
[2024-05-02] MEDS ORDERED: KETOROLAC 15 MG/ML 1 ML VIAL ONE ×2 (23:09→23:11)
[2024-05-02] MEDS ORDERED: metroNIDAZOLE 500 MG TAB ONE ×2 (23:09→23:11)
[2024-05-02] MEDS ORDERED: CIPROFLOXACIN HCL 500 MG TAB ONE ×2 (23:10→23:11)
--- NOTE | 2024-05-26 08:04 | CT ---
Report Patient: Gely Lopez Ordering Physician: Unknown, Unknown ID: [id number] Phone, Pager: Phone: N/A Pager: N/A : [phone] Age/Gender: 78Y, F Primary Location: N/A Procedure: A/P WO Study Date: 05/02/2024 8:45:00 PM EXAMINATION TYPE: CT abdomen pelvis wo con DATE OF EXAM: 05/02/2024 COMPARISON: 05/11/2019 HISTORY: 78-year-old female abdominal pain, bloating, history of diverticulitis CT DLP: 471.1 mGycm. Automated exposure control for dose reduction was used. TECHNIQUE: Contiguous axial scanning of the abdomen and pelvis without IV contrast. Coronal and sagit [place] reconstructions performed. FINDINGS: The heart is upper limits of normal in size without pericardial effusion. mitral annular calcificatio ns are present. Strandy atelectasis or scarring in the lower lungs. No pleural effusion. Noncontrast appearance of the liver, gallbladder, adrenal glands, right kidney, spleen, and pancreas show no gross abnormality. A cortical hypodensity lateral lower pole left kidney currently 2.2 cm, enlarged from 1.2 cm back in 2019. Likely a benign cyst. No dilated small bowel, free fluid, or free air. No mesenteric or retroperitoneal lymphadenopathy. Ti ny fatty umbilical hernia. Mild to moderate stool in the left side of the colon. Left-sided colonic diverticulosis, extensive wi thin the sigmoid colon. Moderate pericolonic fat stranding at the mid sigmoid colon within the pelvis with associated colonic wall thickening. Associated mild pelvic free fluid. Redundant sigmoid colon. Multiple sequential bladder wall thickening may be reactive to the adjacent inflammation. Uterus surg ically absent. Small left ovary seen. Right ovary not clearly delineated. No pelvic lymphadenopathy. Bones: Mild degenerative change of the hips. Bilateral L5 pars defects with grade 2 anterolisthesis L 5-S1. Moderate degenerative disc disease mid and lower lung or spine. Degenerative grade 1 retrolisth esis L1-L2 and L2-L3. Baastrup's disease. IMPRESSION: 1. Extensive sigmoid diverticulosis with findings positive for acute diverticulitis at the mid sigmo id colon. Moderate inflammation and reactive mild pelvic free fluid. No abscess or free air. 2. Mild circumferential bladder wall thickening may be chronic for the patient or could be reactive to the adjacent colon inflammation. Correlate to exclude cystitis. 3. Bilateral L5 pars defects with grade 2 anterolisthesis of L5-S1.
== END 2024-05-02 23:35 | disposition home or self-care (01) ==
LOC: EC 19:35
DX: K57.32 Diverticulitis of large intestine without perforation or abscess without bleeding (principal)
CPT/HCPCS: 74176; 87086; 96360; 99284

== ENCOUNTER → 2024-07-16 | Outpatient (CLI) | payer MEDICARE ==
[2024-07-16 08:33] VITALS: BP 134/86; PULSE 93; RESP 17; TEMP 97.6
--- NOTE | 2024-07-16 10:00 | P.HPOB ---
History of Present Illness H&P Date: 07/16/24 Chief Complaint: The patient is here for her routine gynecologic exam. This is a 78-year-old -0-1-4 with an LMP of 1996. Patient is here to establish with this office. She previously saw Dr. Ballard for her gynecologic care. She was last seen about 1 year ago. She is without gynecologic complaints. She denies any postmenopausal bleeding. She did find out her longtime was unfaithful and she tested positive for chlamydia in 2021. She was treated at that time. She got about 1-1/2 years ago and has not been sexually active since then. She states she does not plan on being sexually active in the future. She states her is trying to get back together and wants to get again, but she says that will not happen. She has a history of genital HSV and rarely has outbreaks, but does want a prescription for Valtrex. She has noticed occasional slight dysuria. Dr. Ballard's records indicate negative Pap smears on 06/19/2023, 06/07/2022, 04/25/2021, 04/05/2020, 03/31/2019, and 02/25/2018. There was negative high-risk HPV testing on 04/05/2020 and 03/31/2019. Patient is requesting to continue Pap smear screening at this time. Review of Systems The patient's weight has been stable over the last year. She denies respiratory, cardiac, or G.I. problems. : Occasional slight dysuria without urinary frequency or urgency. Past Medical History Past Medical History: GERD/Reflux, Hyperlipidemia, Thyroid Disorder Additional Past Medical History / Comment(s): Hypothyroidism, environmental allergies, diverticular disease, and osteopenia. 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 History of Any Multi-Drug Resistant Organisms: None Reported Past Surgical History: Adenoidectomy, Orthopedic Surgery, Tonsillectomy Additional Past Surgical History / Comment(s): Arthroscopic right knee surgery, left ankle surgery, D&C, vein stripping. Colonoscopy 2019(next after 10yr). Past Psychological History: Anxiety Smoking Status: Never smoker Past Alcohol Use History: None Reported Past Drug Use History: None Reported Additional History: She has been since early 2022 following spousal infidelity. She is currently not seeing anybody at this time and is not sexually active. 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 - Past Family History Father Family Medical History: Myocardial Infarction ([place]) Additional Family Medical History / Comment(s): . Mother Family Medical History: Hyperlipidemia Additional Family Medical History / Comment(s): . at the age of 99. Brother(s) Additional Family Medical History / Comment(s): History of aneurysm and blood clot. Medications and Allergies Home Medications Medication Instructions Recorded Confirmed Type Atorvastatin Calcium [Lipitor] 40 mg PO DAILY 04/28/16 07/16/24 History Calcium Carbonate [Calcium] 600 mg PO DAILY 04/28/16 07/16/24 History Cholecalciferol [Vitamin D3] 1,000 unit PO DAILY 04/28/16 07/16/24 History L.acidoph,Paracasei, B.lactis 1 cap PO DAILY 04/28/16 07/16/24 History [Probiotic] Levothyroxine Sodium [Synthroid] 75 mcg PO DAILY 04/28/16 07/16/24 History Levocetirizine Dihydrochloride 5 mg PO DAILY 10/13/16 07/16/24 History [Xyzal] valACYclovir HCL [Valtrex] 500 mg PO DAILY 10/13/16 07/16/24 History Irbesartan [Avapro] 75 mg PO DIRECTED 07/16/24 07/16/24 History Allergies Allergy/AdvReac Type Severity Reaction Status Date / Time epinephrine Allergy Unknown Verified 07/16/24 08:29 Penicillins Allergy Rash/Hives Verified 07/16/24 08:29 STEROIDS Allergy Unknown Uncoded 07/16/24 08:29 Exam Vital Signs Temp Pulse Resp BP Pulse Ox 07/16/24 08:31 97.6 F 93 17 134/86 98 Intake and Output 07/15/24 07/16/24 07/16/24 22:59 06:59 14:59 Other: Weight 66.224 kg Height 5 feet 4 inches, weight 146 pounds, BMI 25.1. This is a well-developed well-nourished white female who is alert and oriented times 3 in no acute distress. HEENT: Within normal limits. NECK: Supple without mass or thyromegaly. CHEST AND LUNGS: Clear to auscultation. HEART: Regular rate and rhythm. BREASTS: Are without mass or discharge. AXILLARY EXAM: Negative for adenopathy. BACK: Negative for CVA tenderness. ABDOMEN: Soft, nontender, without palpable masses. PELVIC EXAM: Normal external genitalia with mild to moderate atrophy. Cervix and vagina appear normal with moderate atrophy. The cervix appears stenotic secondary to atrophy. There is no unusual discharge. There is no evidence of prolapse. The uterus is midposition, nongravid size and nontender. There are no palpable adnexal masses or tenderness. RECTAL EXAM: Rectovaginal exam is negative for mass or tenderness and is negative for occult blood. EXTREMITIES: Nontender. IMPRESSION: 1. 78-year-old menopausal female with normal gynecologic exam. 2. History of genital HSV with infrequent outbreaks. 3. History of spousal infidelity and she was treated for chlamydia in 2021. 4. History of osteopenia. 5. Intermittent dysuria. PLAN: 1. Pap smear cotest was performed. Cervical screening will be continued especially with her fairly recent history of an STD. If this is negative, we will further discussed the possibility of decreasing or discontinuing cervical screening. 2. Self breast awareness was discussed with the patient. We have also discussed symptoms associated with inflammatory breast cancer. 3. Screening mammogram was done in October 2023 according to the patient. This was done at [facility]. The last [address] Ballard's records was done in 2022. The patient states her last mammogram was normal and was done around 's Day earlier this year. The patient was given the order slip for a mammogram which will be done around 's of 2024. 4. Osteoporosis prevention was discussed. I have stressed the importance of adequate calcium, vitamin D and regular exercise. Recommended amounts of calcium and vitamin D were also discussed. Her last bone density test was done on 05/25/[address] Ballard's records. I have recommended repeating the bone density test and the order slip was given to the patient for this. 5. Valtrex 500 mg p.o. twice daily x 3 days. She will start this at the onset of a HSV outbreak. Electronic prescription will be sent to [facility] pharmacy on [address] Urine has been obtained for urinalysis. 7. She was advised to return in one year for her annual well woman exam.
--- NOTE | 2024-07-18 08:59 | P.PN ---
Progress Note - Text Progress Note Date: 07/18/24 OUTPATIENT FOLLOW-UP NOTE TEST(S)/RESULTS: Test results from 07/16/2024 include negative urinalysis and negative GC and negative chlamydia testing. METHOD OF NOTIFICATION: The patient was notified by phone on 07/18/2024. PATIENT COMMENTS: DIAGNOSIS: Negative urinalysis and negative GC and negative chlamydia testing. DISCUSSION: PLAN: No treatment needed.
== END ==
LOC: WWCWWP 08:03
PROVIDERS: ATTEND Obstetrics & Gynecology
DX: Z01.419 Encounter for gynecological examination (general) (routine) without abnormal findings (principal); M85.80 Other specified disorders of bone density and structure, unspecified site; R30.0 Dysuria; Z78.0 Asymptomatic menopausal state; Z87.42 Personal history of other diseases of the female genital tract; Z88.1 Allergy status to other antibiotic agents; Z88.8 Allergy status to other drugs, medicaments and biological substances; Z88.0 Allergy status to penicillin

== ENCOUNTER 2024-09-07 05:58 | Emergency (ER) | payer MEDICARE ==
[2024-09-07 06:13] VITALS: RESP 16
--- NOTE | 2024-09-07 06:30 | ED ---
General Adult HPI - General Chief complaint: Dental/Oral Stated complaint: Dental pain Time Seen by Provider: 09/07/24 06:28 Source: patient, RN notes reviewed Mode of arrival: ambulatory - History of Present Illness Initial comments: Quick note: 79-year-old female presents to the emergency department for evaluation of dental pain. Patient reports that she has had issues with one of her left-sided molars. She states that this has been going on for around 3 days. Patient also notes that she had a syncopal episode about 3 days ago. She attributes this to "a touch of the flu "but then started experiencing the pain and believes that this is the cause of the syncopal episode. She denies any chest pain, shortness of breath. - Related Data Home Medications Medication Instructions Recorded Confirmed Atorvastatin Calcium [Lipitor] 40 mg PO DAILY 04/28/16 07/16/24 Calcium Carbonate [Calcium] 600 mg PO DAILY 04/28/16 07/16/24 Cholecalciferol [Vitamin D3] 1,000 unit PO DAILY 04/28/16 07/16/24 L.acidoph,Paracasei, B.lactis 1 cap PO DAILY 04/28/16 07/16/24 [Probiotic] Levothyroxine Sodium [Synthroid] 75 mcg PO DAILY 04/28/16 07/16/24 Levocetirizine Dihydrochloride 5 mg PO DAILY 10/13/16 07/16/24 [Xyzal] Irbesartan [Avapro] 75 mg PO DIRECTED 07/16/24 07/16/24 Previous Rx's Medication Instructions Recorded valACYclovir HCL [Valtrex] 500 mg PO BID 3 Days #6 tab 07/16/24 clindamycin HCL 300 mg PO QID #40 cap 09/07/24 Allergies Allergy/AdvReac Type Severity Reaction Status Date / Time epinephrine Allergy Unknown Verified 09/07/24 06:14 Penicillins Allergy Rash/Hives Verified 09/07/24 06:14 STEROIDS Allergy Unknown Uncoded 09/07/24 06:14 Review of Systems ROS Statement: Those systems with pertinent positive or pertinent negative responses have been documented in the HPI. ROS Other: All systems not noted in ROS Statement are negative. Past Medical History Past Medical History: GERD/Reflux, Hyperlipidemia, Thyroid Disorder Additional Past Medical History / Comment(s): Hypothyroidism, environmental allergies, diverticular disease, and osteopenia. 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 History of Any Multi-Drug Resistant Organisms: None Reported Past Surgical History: Adenoidectomy, Orthopedic Surgery, Tonsillectomy Additional Past Surgical History / Comment(s): Arthroscopic right knee surgery, left ankle surgery, D&C, vein stripping. Colonoscopy 2019(next after 10yr). Past Psychological History: Anxiety Smoking Status: Never smoker Past Alcohol Use History: None Reported Past Drug Use History: None Reported - Past Family History Father Family Medical History: Myocardial Infarction ([place]) Additional Family Medical History / Comment(s): . Mother Family Medical History: Hyperlipidemia Additional Family Medical History / Comment(s): . at the age of 99. Brother(s) Additional Family Medical History / Comment(s): History of aneurysm and blood clot. General Exam - General Exam Comments Initial Comments: Visual Physical Exam Vital signs reviewed General: Well-appearing, nontoxic, no acute distress. Head: Normocephalic, atraumatic Eyes: PERRLA, EOMI ENT: Airway patent Chest: Nonlabored breathing Skin: No visual rash, normal skin tone Neuro: Alert and oriented 3 Musculoskeletal: No gross abnormalities Limitations: no limitations General appearance: alert, in no apparent distress Head exam: Present: atraumatic, normocephalic, normal inspection Eye exam: Present: normal appearance, PERRL, EOMI. Absent: scleral icterus, conjunctival injection, periorbital swelling ENT exam: Present: mucous membranes moist, other (Dental bridge in place with no visible abscess formation) Neck exam: Present: normal inspection. Absent: tenderness, meningismus, lymphadenopathy Respiratory exam: Present: normal lung sounds bilaterally. Absent: respiratory distress, wheezes, rales, rhonchi, stridor Cardiovascular Exam: Present: regular rate, normal rhythm, normal heart sounds. Absent: systolic murmur, diastolic murmur, rubs, gallop, clicks Neurological exam: Present: alert, oriented X3 Psychiatric exam: Present: normal affect, normal mood Skin exam: Present: warm, dry, intact, normal color. Absent: rash Course Vital Signs 09/07/24 09/07/24 06:08 08:40 Temperature 98.7 F 98.4 F Pulse Rate 84 80 Respiratory 16 16 Rate Blood Pressure 145/82 138/77 O2 Sat by Pulse 99 99 Oximetry Medical Decision Making - Medical Decision Making Quick note preformed and electronically signed by RANGEL Ott-C Was pt. sent in by a medical professional or institution (RANGEL Khalil, TOPOGRAPHICAL DRAFTER, urgent care, hospital, or residential...) When possible be specific @ -No Did you speak to anyone other than the patient for history (EMS, parent, family, police, friend...)? What history was obtained from this source @ -No Did you review nursing and triage notes (agree or disagree)? Why? @ -I reviewed and agree with nursing and triage notes Were old charts reviewed (outside hosp., previous admission, EMS record, old EKG, old radiological studies, urgent care reports/EKG's, residential records)? Report findings @ -No old charts were reviewed Differential Diagnosis (chest pain, altered mental status, abdominal pain women, abdominal pain men, vaginal bleeding, weakness, fever, dyspnea, syncope, headache, dizziness, GI bleed, back pain, seizure, CVA, palpatations, mental health, musculoskeletal)? @ -Dental infection, dental abscess, dental appliance issue, parotiditis, strep throat, this list is not all inclusive EKG interpreted by me (3pts min.). @ -EKG at 710 shows sinus rhythm rate 82, OH 164, QRS 112, QTQTc [id number] X-rays interpreted by me (1pt min.). @ -None done CT interpreted by me (1pt min.). @ -None done U/S interpreted by me (1pt. min.). @ -None done What testing was considered but not performed or refused? (CT, X-rays, U/S, labs)? Why? @ -None What meds were considered but not given or refused? Why? @ -None Did you discuss the management of the patient with other professionals (professionals i.e. RANGEL Khalil, TOPOGRAPHICAL DRAFTER, lab, RT, psych nurse, professor of social work, children's librarian, teacher, police liaison officer, disease case manager)? Give summary @ -No Was smoking cessation discussed for >3mins.? @ -No Was critical care preformed (if so, how long)? @ -No Were there social determinants of health that impacted care today? How? (Homelessness, low income, unemployed, alcoholism, drug addiction, transportation, low edu. Level, literacy, decrease access to med. care, intermediate, rehab)? @ -No Was there de-escalation of care discussed even if they declined (Discuss DNR or withdrawal of care, Hospice)? DNR status @ -No What co-morbidities impacted this encounter? (DM, HTN, Smoking, COPD, CAD, Cancer, CVA, ARF, Chemo, Hep., AIDS, mental health diagnosis, sleep apnea, morbid obesity)? @ -None Was patient admitted / discharged? Hospital course, mention meds given and route, prescriptions, significant lab abnormalities, going to OR and other pertinent info. @ -Discharge. Patient presented to the emergency department for evaluation of dental pain. Laboratory studies obtained revealing no significant leukocytosis, hemoglobin stable, CMP essentially unremarkable no significant lactic acidosis. Patient was tested for COVID, influenza, RSV and did test positive for COVID- 19. Patient was advised on findings. Discussed with patient that was COVID is treated symptomatically but she will be started on antibiotics for her dental infection. She is understanding and agreeable with plan. Patient stable at time of discharge. Case discussed with Dr. Ribeiro. Undiagnosed new problem with uncertain prognosis? @ -No Drug Therapy requiring intensive monitoring for toxicity (Heparin, Nitro, Insulin, Cardizem)? @ -No Were any procedures done? @ -No Diagnosis/symptom? @ -COVID-19, dental infection Acute, or Chronic, or Acute on Chronic? @ -Acute Uncomplicated (without systemic symptoms) or Complicated (systemic symptoms)? @ -Uncomplicated Side effects of treatment? @ -No Exacerbation, Progression, or Severe Exacerbation? @ -No Poses a threat to life or bodily function? How? (Chest pain, [place], [place], pneumonia, PE, COPD, DKA, ARF, appy, cholecystitis, CVA, Diverticulitis, Homicidal, Suicidal, threat to staff... and all critical care pts) @ -No - Lab Data Result diagrams: 09/07/24 06:50 09/07/24 06:50 Lab Results 09/07/24 09/07/24 09/07/24 Range/Units 06:45 06:50 06:50 WBC 5.1 (3.8-10.6) k/uL RBC 3.93 (3.80-5.40) m/uL Hgb 12.2 (11.4-16.0) gm/dL Hct 36.4 (34.0-46.0) % MCV 92.5 (80.0-100.0) fL MCH 31.1 (25.0-35.0) pg MCHC 33.6 (31.0-37.0) g/dL RDW 13.3 (11.5-15.5) % Plt Count 263 (150-450) k/uL MPV 6.9 Neutrophils % 51 % Lymphocytes % 32 % Monocytes % 8 % Eosinophils % 6 % Basophils % 1 % Neutrophils # 2.6 (1.3-7.7) k/uL Lymphocytes # 1.6 (1.0-4.8) k/uL Monocytes # 0.4 (0-1.0) k/uL Eosinophils # 0.3 (0-0.7) k/uL Basophils # 0.0 (0-0.2) k/uL Sodium 138 (137-145) mmol/L Potassium 4.1 (3.5-5.1) mmol/L Chloride 105 (98-107) mmol/L Carbon Dioxide 25 (22-30) mmol/L Anion Gap 8 mmol/L BUN 11 (7-17) mg/dL Creatinine 0.75 (0.52-1.04) mg/dL Est GFR (CKD-EPI)AfAm 89 (>60 ml/min/1.73 sqM) Est GFR (CKD-EPI)NonAf 77 (>60 ml/min/1.73 sqM) Glucose 96 (74-99) mg/dL Plasma Lactic Acid Turner (0.7-2.0) mmol/L Calcium 9.8 (8.4-10.2) mg/dL Total Bilirubin 0.3 (0.2-1.3) mg/dL AST 22 (14-36) U/L ALT 25 (4-34) U/L Alkaline Phosphatase 68 (38-126) U/L Total Protein 7.0 (6.3-8.2) g/dL Albumin 4.2 (3.5-5.0) g/dL Influenza Type A (PCR) Not Detected (Not Detectd) Influenza Type B (PCR) Not Detected (Not Detectd) RSV (PCR) Not Detected (Not Detectd) SARS-CoV-2 (PCR) Detected A (Not Detectd) 09/07/24 Range/Units 06:50 WBC (3.8-10.6) k/uL RBC (3.80-5.40) m/uL Hgb (11.4-16.0) gm/dL Hct (34.0-46.0) % MCV (80.0-100.0) fL MCH (25.0-35.0) pg MCHC (31.0-37.0) g/dL RDW (11.5-15.5) % Plt Count (150-450) k/uL MPV Neutrophils % % Lymphocytes % % Monocytes % % Eosinophils % % Basophils % % Neutrophils # (1.3-7.7) k/uL Lymphocytes # (1.0-4.8) k/uL Monocytes # (0-1.0) k/uL Eosinophils # (0-0.7) k/uL Basophils # (0-0.2) k/uL Sodium (137-145) mmol/L Potassium (3.5-5.1) mmol/L Chloride (98-107) mmol/L Carbon Dioxide (22-30) mmol/L Anion Gap mmol/L BUN (7-17) mg/dL Creatinine (0.52-1.04) mg/dL Est GFR (CKD-EPI)AfAm (>60 ml/min/1.73 sqM) Est GFR (CKD-EPI)NonAf (>60 ml/min/1.73 sqM) Glucose (74-99) mg/dL Plasma Lactic Acid Turner 1.6 (0.7-2.0) mmol/L Calcium (8.4-10.2) mg/dL Total Bilirubin (0.2-1.3) mg/dL AST (14-36) U/L ALT (4-34) U/L Alkaline Phosphatase (38-126) U/L Total Protein (6.3-8.2) g/dL Albumin (3.5-5.0) g/dL Influenza Type A (PCR) (Not Detectd) Influenza Type B (PCR) (Not Detectd) RSV (PCR) (Not Detectd) SARS-CoV-2 (PCR) (Not Detectd) Disposition Clinical Impression: Dental implant pain Disposition: HOME SELF-CARE Condition: Stable Instructions (If sedation given, give patient instructions): Toothache (ED) Additional Instructions: Please follow up with your dentist. Return to the emergency department for new or worsening symptoms. Prescriptions: clindamycin HCL 300 mg PO QID #40 cap Is patient prescribed a controlled substance at d/c from ED?: No Referrals: Pedro Maldonado MD [Primary Care Provider] - 1-2 days
[2024-09-07 07:13] LABS: Basophils % (A) 1 %; Eosinophils # (A) 0.3 k/uL (0-0.7); Eosinophils % (A) 6 %; HCT 36.4 % (34.0-46.0); HGB 12.2 gm/dL (11.4-16.0); Lymphocytes # (A) 1.6 k/uL (1.0-4.8); Lymphocytes % (A) 32 %; MCH 31.1 pg (25.0-35.0); MCHC 33.6 g/dL (31.0-37.0); MCV 92.5 fL (80.0-100.0); Mean Platelet Volume 6.9; Monocytes # (A) 0.4 k/uL (0-1.0); Monocytes % (A) 8 %; Neutrophils # (A) 2.6 k/uL (1.3-7.7); Neutrophils % (A) 51 %; Platelet Count 263 k/uL (150-450); RBC 3.93 m/uL (3.80-5.40); RDW 13.3 % (11.5-15.5); WBC 5.1 k/uL (3.8-10.6)
[2024-09-07 07:34] LABS: ALT 25 U/L (4-34); AST 22 U/L (14-36); African American GFR (CKD) 89 (>60 ml/min/1.73 sqM); Albumin 4.2 g/dL (3.5-5.0); Alkaline Phosphatase 68 U/L (38-126); Anion Gap 8 mmol/L; Blood Urea Nitrogen 11 mg/dL (7-17); Calcium 9.8 mg/dL (8.4-10.2); Carbon Dioxide 25 mmol/L (22-30); Chloride 105 mmol/L (98-107); Glucose 96 mg/dL (74-99); Non-African American GFR(CKD) 77 (>60 ml/min/1.73 sqM); Potassium 4.1 mmol/L (3.5-5.1); Sodium 138 mmol/L (137-145); Total Bilirubin 0.3 mg/dL (0.2-1.3)
[2024-09-07 08:42] VITALS: BP 138/77; PULSE 80; TEMP 98.4
== END 2024-09-07 08:41 | disposition home or self-care (01) ==
LOC: EC 05:58
DX: T85.848A Pain due to other internal prosthetic devices, implants and grafts, initial encounter (principal); U07.1 COVID-19; Z88.0 Allergy status to penicillin; Z88.8 Allergy status to other drugs, medicaments and biological substances
CPT/HCPCS: 36415; 80053; 83605; 85025; 87636; 93005; 99283

== ENCOUNTER 2024-09-27 20:25 | Emergency (ER) | payer MEDICARE ==
--- NOTE | 2024-09-27 21:00 | ED ---
Back Pain HPI - General Chief Complaint: Back Pain/Injury Stated Complaint: Back Pain Time Seen by Provider: 09/27/24 20:57 Source: patient, RN notes reviewed Limitations: no limitations - History of Present Illness Initial Comments: 79-year-old female presenting to the ER for chief complaint of low back pain for 4 days. States she "overdid it" at work as she states she lifting multiple heavy boxes. States she woke up the next day with pain in the lower back and radiates down left leg. Worse with movement. Denies bowel or bladder incontinence. Denies saddle anesthesia. Denies numbness, tingling, weakness of the bilateral lower extremities. Denies blood thinners. - Related Data Home Medications Medication Instructions Recorded Confirmed Atorvastatin Calcium [Lipitor] 40 mg PO DAILY 04/28/16 07/16/24 Calcium Carbonate [Calcium] 600 mg PO DAILY 04/28/16 07/16/24 Cholecalciferol [Vitamin D3] 1,000 unit PO DAILY 04/28/16 07/16/24 L.acidoph,Paracasei, B.lactis 1 cap PO DAILY 04/28/16 07/16/24 [Probiotic] Levothyroxine Sodium [Synthroid] 75 mcg PO DAILY 04/28/16 07/16/24 Levocetirizine Dihydrochloride 5 mg PO DAILY 10/13/16 07/16/24 [Xyzal] Irbesartan [Avapro] 75 mg PO DIRECTED 07/16/24 07/16/24 Previous Rx's Medication Instructions Recorded valACYclovir HCL [Valtrex] 500 mg PO BID 3 Days #6 tab 07/16/24 clindamycin HCL 300 mg PO QID #40 cap 09/07/24 Cyclobenzaprine [Flexeril] 10 mg PO TID PRN #15 tab 09/27/24 Naproxen [Naprosyn] 500 mg PO Q12H PRN #30 tablet 09/27/24 Allergies Allergy/AdvReac Type Severity Reaction Status Date / Time epinephrine Allergy Unknown Verified 09/27/24 20:32 Penicillins Allergy Rash/Hives Verified 09/27/24 20:32 STEROIDS Allergy Unknown Uncoded 09/27/24 20:32 Review of Systems ROS Statement: Those systems with pertinent positive or pertinent negative responses have been documented in the HPI. ROS Other: All systems not noted in ROS Statement are negative. Past Medical History Past Medical History: GERD/Reflux, Hyperlipidemia, Thyroid Disorder Additional Past Medical History / Comment(s): Hypothyroidism, environmental allergies, diverticular disease, and osteopenia. 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 History of Any Multi-Drug Resistant Organisms: None Reported Past Surgical History: Adenoidectomy, Orthopedic Surgery, Tonsillectomy Additional Past Surgical History / Comment(s): Arthroscopic right knee surgery, left ankle surgery, D&C, vein stripping. Colonoscopy 2019(next after 10yr). Past Psychological History: Anxiety Smoking Status: Never smoker Past Alcohol Use History: None Reported Past Drug Use History: None Reported - Past Family History Father Family Medical History: Myocardial Infarction (OR) Additional Family Medical History / Comment(s): . Mother Family Medical History: Hyperlipidemia Additional Family Medical History / Comment(s): . at the age of 99. Brother(s) Additional Family Medical History / Comment(s): History of aneurysm and blood clot. General Exam Limitations: no limitations General appearance: alert, in no apparent distress Head exam: Present: atraumatic, normocephalic, normal inspection GI/Abdominal exam: Present: soft, normal bowel sounds. Absent: distended, tenderness, guarding, rebound, rigid Back exam: Present: normal inspection, full ROM, paraspinal tenderness (Reproducible paraspinal tenderness lumbar portion of spine bilaterally), other (Full strength and range of motion bilateral hips. No saddle anesthesia. Full sensation and DP pulses bilaterally). Absent: tenderness, CVA tenderness (R), CVA tenderness (L), rash noted Neurological exam: Present: alert, oriented X3 Psychiatric exam: Present: normal affect, normal mood Skin exam: Present: warm, dry, intact, normal color. Absent: rash Course Vital Signs 09/27/24 09/27/24 20:27 22:20 Temperature 97.6 F 98.0 F Pulse Rate 101 H 93 Respiratory 18 19 Rate Blood Pressure 142/102 143/88 O2 Sat by Pulse 98 99 Oximetry Medical Decision Making - Medical Decision Making Was pt. sent in by a medical professional or institution (, PA, CLIENT SERVICES SPECIALIST, urgent care, hospital, or skilled nursing...) When possible be specific @ -No Did you speak to anyone other than the patient for history (EMS, parent, family, police, friend...)? What history was obtained from this source @ -No Did you review nursing and triage notes (agree or disagree)? Why? @ -I reviewed and agree with nursing and triage notes Were old charts reviewed (outside hosp., previous admission, EMS record, old EKG, old radiological studies, urgent care reports/EKG's, skilled nursing records)? Report findings @ -No old charts were reviewed Differential Diagnosis (chest pain, altered mental status, abdominal pain women, abdominal pain men, vaginal bleeding, weakness, fever, dyspnea, syncope, headache, dizziness, GI bleed, back pain, seizure, CVA, palpatations, mental health, musculoskeletal)? @ -Differential Back Pain: Strain, zoster, cauda equina syndrome, epidural abscess, vertebral osteomyelitis, discitis, fracture, subluxation, disc herniation, DJD, spinal stenosis, dissection, AAA, pancreatitis, peptic ulcer disease, pyelonephritis, kidney stone, this is not meant to be an all-inclusive list. EKG interpreted by me (3pts min.). @ -None X-rays interpreted by me (1pt min.). @ -X-ray reveals no acute process, mild multilevel disc degenerative strain, grade 2 anterolisthesis of L5 on S1 CT interpreted by me (1pt min.). @ -None done U/S interpreted by me (1pt. min.). @ -None done What testing was considered but not performed or refused? (CT, X-rays, U/S, labs)? Why? @ -None What meds were considered but not given or refused? Why? @ -None Did you discuss the management of the patient with other professionals (professionals i.e. , PA, CLIENT SERVICES SPECIALIST, lab, RT, psych nurse, social work administrator, puppy walker, teacher, geospatial program management officer, mental health case manager)? Give summary @ -No Was smoking cessation discussed for >3mins.? @ -No Was critical care preformed (if so, how long)? @ -No Were there social determinants of health that impacted care today? How? (Homelessness, low income, unemployed, alcoholism, drug addiction, transportation, low edu. Level, literacy, decrease access to med. care, residential, rehab)? @ -No Was there de-escalation of care discussed even if they declined (Discuss DNR or withdrawal of care, Hospice)? DNR status @ -No What co-morbidities impacted this encounter? (DM, HTN, Smoking, COPD, CAD, Cancer, CVA, ARF, Chemo, Hep., AIDS, mental health diagnosis, sleep apnea, morbid obesity)? @ -None Was patient admitted / discharged? Hospital course, mention meds given and route, prescriptions, significant lab abnormalities, going to OR and other pertinent info. @ -Discharge. 79-year-old female presenting for low back pain x 4 days. Patient reports prior to symptom onset she lifted heavy boxes. No red flag symptoms. Neurovascularly intact. Patient was provided with analgesics for supportive care. X-ray reveals no acute process. Upon reevaluation, patient reports improvement of symptoms. Discussed results with patient. Discussed d iagnosis of low back strain. Appropriate return precautions and follow-up care discussed. Case was discussed with my ED attending Dr. Bocanegra Undiagnosed new problem with uncertain prognosis? @ -No Drug Therapy requiring intensive monitoring for toxicity (Heparin, Nitro, Insulin, Cardizem)? @ -No Were any procedures done? @ -No Diagnosis/symptom? @ -Low back strain Acute, or Chronic, or Acute on Chronic? @ -Acute Uncomplicated (without systemic symptoms) or Complicated (systemic symptoms)? @ -Uncomplicated Side effects of treatment? @ -No Exacerbation, Progression, or Severe Exacerbation? @ -No Poses a threat to life or bodily function? How? (Chest pain, USA, OR, pneumonia, PE, COPD, DKA, ARF, appy, cholecystitis, CVA, Diverticulitis, Homicidal, Suicidal, threat to staff... and all critical care pts) @ -No Disposition Clinical Impression: Low back strain Disposition: HOME SELF-CARE Condition: Stable Instructions (If sedation given, give patient instructions): Acute Low Back Pain (ED) Additional Instructions: Take naproxen and Flexeril as needed for pain. Do not take any other NSAIDs such as Advil/ibuprofen with the naproxen. Please return to the Emergency Department if symptoms worsen or any other concerns. Prescriptions: Cyclobenzaprine [Flexeril] 10 mg PO TID PRN #15 tab PRN Reason: Muscle Spasm Naproxen [Naprosyn] 500 mg PO Q12H PRN #30 tablet PRN Reason: Pain Is patient prescribed a controlled substance at d/c from ED?: No Referrals: Pedro Maldonado MD [Primary Care Provider] - 1-2 days Time of Disposition: 22:05
[2024-09-27] MEDS: KETOROLAC 15 MG/ML 1 ML VIAL IM STA (21:09)
[2024-09-27] MEDS: ORPHENADRINE 30 MG/ML 2 ML VIAL IM STA (21:09)
--- NOTE | 2024-09-27 21:41 | XR ---
EXAMINATION TYPE: XR lumbar spine 2 or 3V DATE OF EXAM: 09/27/2024 9:34 PM COMPARISON: None CLINICAL INDICATION: Female, 79 years old with history of low back pain; , pain TECHNIQUE: XR lumbar spine 2 or 3V - Frontal, lateral and coned in L5-S1 lateral views of the spine. FINDINGS: No evidence of any acute osseous pathology. No evidence of loss of vertebral body height i s seen. There is grade 2 anterolisthesis of L5 on S1 Alignment of the lumbar vertebral bodies as well as straightening of the remainder of the spine.. Scattered disc space narrowing. Multilevel marginal osteophyte formation throughout the visualized spine. There is facet joint arthropathy throughout th e spine. Scattered at least mild neural foraminal stenosis. IMPRESSION: 1. No acute fracture. 2. Mild multilevel disc degeneration. 3. Grade 2 anterolisthesis of L5 on S1. [facility], , 09/27/2024 9:38 PM
[2024-09-27 22:20] VITALS: BP 143/88; PULSE 93; RESP 19; TEMP 98
== END 2024-09-27 22:20 | disposition home or self-care (01) ==
LOC: EC 20:25
DX: S39.012A Strain of muscle, fascia and tendon of lower back, initial encounter (principal); Z88.0 Allergy status to penicillin; Z88.8 Allergy status to other drugs, medicaments and biological substances; X50.0XXA Overexertion from strenuous movement or load, initial encounter; Y99.0 Civilian activity done for income or pay
CPT/HCPCS: 72100; 99283; 96372; J2360; J1885

== ENCOUNTER → 2024-12-25 | Outpatient (CLI) | payer MEDICARE ==
--- NOTE | 2024-12-25 14:52 | BD ---
EXAMINATION TYPE: Axial Bone Density DATE OF EXAM: 12/25/2024 CLINICAL HISTORY: 79 years old Female. ICD-10 CODE: Z78.0 Postmenopausal , Additional History: Height: 63.5 Weight: 154.0 FRAX RISK QUESTIONS: Alcohol (3 or more units per day): no Family History (Parent hip fracture): no Glucocorticoids (More than 3mos): no (Ex: prednisone, prednisolone, methylprednisolone, dexamethasone, and hydrocortisone). History of Fracture in Adulthood: yes Secondary Osteoporosis: 1. Type 1 Diabetes: no 2. Hyperthyroidism: no 3. Menopause before 45: no 4. Malnutrition: no 5. Chronic liver disease: no Rheumatoid Arthritis: no Current Tobacco Use: no RISK FACTORS HISTORY OF: Surgery to Spine/Hip(right/left)/Wrist (right/left): no MEDICATIONS: Thyroid Medications: yes How Lon years EXAM MEASUREMENTS: Bone mineral densitometry was performed using the [employer] System. Bone mineral density as measured about the Lumbar spine is: ----- L1-L4(G/cm2): 0.958 T Score Values are as follows: ----- L1: -2.1 ----- L2: -1.6 ----- L3: -2.0 ----- L4: -1.8 ----- L1-L4: -1.9 Z Score Values are as follows: ----- L1: -0.5 ----- L2: 0.0 ----- L3: -0.4 ----- L4: -0.2 ----- L1-L4: -0.2 Bone mineral density has: decreased -7.3 % since study of: 2018 Bone mineral density about the R hip (g/cm2): 0.890 Bone mineral density about the L hip (g/cm2): 0.872 T Score values are as follows: -----R Neck: -1.3 -----L Neck: -1.5 -----R Total: -0.9 -----L Total: -1.1 Z Score values are as follows: -----R Neck: 0.6 -----L Neck: 0.4 -----R Total: 0.8 -----L Total: 0.7 Bone mineral density has: decreased -2.9 % since study of: 2018 FRAX%s: The graph provided illustrates a 18.4% chance for a major osteoporotic fx and a 3.8% chance f or the hips probability for fx in 10 years time. IMPRESSION: Osteopenia (T Score between -2.5 and -1). There is slightly increased risk of fracture and the patient may be considered for treatment. Re-Screen 2-5 years. NOTE: T-SCORE=SD OF THE YOUNG ADULT MEAN. [facility], , 12/25/2024 2:50 PM
--- NOTE | 2024-12-30 14:42 | P.PN ---
Progress Note - Text Progress Note Date: 12/30/24 OUTPATIENT FOLLOW-UP NOTE TEST(S)/RESULTS: Bone density test done on 12/25/2024 showed osteopenia. METHOD OF NOTIFICATION: A message with this result was left on the patient's voicemail on 12/30/2024. PATIENT COMMENTS: DIAGNOSIS: Osteopenia. DISCUSSION: I have stressed the importance of getting adequate calcium, vitamin D, and regular exercise. We will plan on repeating the bone density test in approximately 2 to 3 years. PLAN: She will return for her regular well woman examination. Also as above.
--- NOTE | 2025-01-07 08:28 | MM ---
Reason for Exam: Screening (asymptomatic). Last mammogram was performed 1 year(s) and 2 month(s) ago. Patient History: Menarche at age 14. First Full-Term at age 27. Postmenopausal. Risk Values: Beryl 5 year model risk: 1.9%. NCI Lifetime model risk: 3.7%. Tissue Density: There are scattered areas of fibroglandular density. Findings: Analyzed By CAD. Benign-appearing vascular calcifications bilaterally are redemonstrated. Benign-appearing bilateral axillary lymph nodes are again seen. There is no suspicious group of microcalcifications or new suspicious mass in either breast. Overall Assessment: Benign, BI-RAD 2 Management: Screening Mammogram of both breasts in 1 year. . Patient should continue monthly self-breast exams. A clinical breast exam by your physician is recommended on an annual basis. This exam should not preclude additional follow-up of suspicious palpable abnormalities. Note on Beryl scores and lifetime risk: 1. A Beryl score greater than 3% is considered moderate risk. If this is the case, consider specialist referral to assess eligibility for a risk reducing agent. 2. If overall lifetime risk for the development of breast cancer is 20% or higher, the patient may qualify for future screening with alternating mammogram and breast MRI. [facility], , 01/07/2025 8:25 AM. Electronically signed and approved by: Jori Sousa M.D.
== END | disposition home or self-care (01) ==
LOC: RADMAMWWP 13:22
PROVIDERS: ATTEND Obstetrics & Gynecology
DX: Z12.31 Encounter for screening mammogram for malignant neoplasm of breast (principal); R92.323 Mammographic fibroglandular density, bilateral breasts; M85.89 Other specified disorders of bone density and structure, multiple sites; Z78.0 Asymptomatic menopausal state
CPT/HCPCS: 77063; 77067; 77080